=== PATIENT | female | born 1950 | race African-American/Black ===

== ENCOUNTER 2018-09-11 06:21 | Day surgery (SDC) | payer MEDICARE, OTHER ==
[~2018-09-11] VITALS: Ht 170.2 cm; Wt 93.9 kg
[2018-09-11] MEDS ORDERED: PRAV40TA58 PO (08:30)
[2018-09-11] MEDS ORDERED: ASPI-1159 PO (08:30)
[2018-09-11] MEDS ORDERED: LOSA1TAB37 PO (08:30)
[2018-09-11] MEDS ORDERED: POTA10TA19 PO (08:30)
[2018-09-11] MEDS ORDERED: NITR0.4T SL (08:30)
[2018-09-11] MEDS ORDERED: LIDOCAINE HCL 1% 20ML VIAL (Pyxis) INJ ONE (08:31)
[2018-09-11] MEDS ORDERED: MIDAZOLAM HCL 5 MG/5 ML VIAL ONE (08:32)
[2018-09-11] MEDS ORDERED: FENTANYL CITRATE/PF 50MCG/ML 2ML VIAL ONE (08:32)
[2018-09-11] MEDS ORDERED: IOHEXOL-300 100 ML BOTTLE ONE (08:35)
[2018-09-11] MEDS ORDERED: ATROPINE SULFATE 1MG/10ML SYR IV PRN (09:30)
[2018-09-11] MEDS ORDERED: ONDANSETRON HCL 4MG/2ML INJ IV PRN (09:30)
[2018-09-11] MEDS ORDERED: ACETAMINOPHEN 325MG TABLET PO PRN (09:30)
[2018-09-11] MEDS ORDERED: HEPARIN SODIUM 1,000 UNIT/1ML VIAL IV ONE (14:51)
[2018-09-11] MEDS ORDERED: NITROGLYCERIN 50MCG/ML 10ML VIAL (CATH LAB) IV ONE (15:10)
[2018-09-11] MEDS ORDERED: NICARDIPINE 100MCG/ML 10ML VIAL (CATH LAB) IV ONE (15:10)
== END 2018-09-11 13:12 | disposition home or self-care (01) ==
LOC: CCL 06:21
PROVIDERS: ATTEND Specialist
DX: I25.10 Atherosclerotic heart disease of native coronary artery without angina pectoris (principal); R73.9 Hyperglycemia, unspecified; I47.1 Supraventricular tachycardia; I25.2 Old myocardial infarction; Z95.5 Presence of coronary angioplasty implant and graft; Z98.890 Other specified postprocedural states
CPT/HCPCS: 93458; C1769; J1644; J2250; J3010; J3490; Q9967; 99152; C1887; C1893; G0500

== ENCOUNTER 2019-05-20 05:38 | Day surgery (SDC) | payer MEDICARE, OTHER ==
[~2019-05-20] VITALS: Ht 170.2 cm; Wt 95.3 kg
[~2019-05-20 05:38] MED LIST: ASPI-1393 PO; LACTATED RINGERS 1,000 ML IV SCH; LOSA1TAB37 PO; NITR0.4T SL; POTA10TA19 PO; PRAV40TA58 PO
[2019-05-20 06:20] LABS: EOSINOPHILS % 2.7 % (0.0-5.0); HEMATOCRIT. 41.2 % (36.0-48.0); HEMOGLOBIN. 13.9 g/dL (12.0-16.0); LYMPHOCYTES % 16.7 % (20.0-50.0); MEAN CORPUSCULAR HEMOGLOBIN 29.3 pg (28.0-32.0); MEAN CORPUSCULAR VOLUME 87.1 fL (81.0-99.0); MEAN PLATELET VOLUME 8.7 fl (7.4-10.4); MONOCYTES % 5.4 % (2.0-8.0); NEUTROPHILS % 74.2 % (40.0-76.0); PLATELET 283 x1000/uL (130-400); RED BLOOD CELL COUNT 4.73 mill/uL (4.2-5.4); RED CELL DISTRIBUTION WIDTH 12.6 % (11.6-14.6)
[2019-05-20 06:27] LABS: CHLORIDE 107 mEq/L (98-107)
[2019-05-20 06:45] LABS: CLARITY URINE CLEAR (CLEAR); COLOR URINE YELLOW (YELLOW); KETONES URINE NEGATIVE (NEGATIVE); LEUKOCYTE ESTERASE URINE 1+ (NEGATIVE); NITRITE URINE NEGATIVE (NEGATIVE); OCCULT BLOOD URINE NEGATIVE (NEGATIVE); PROTEIN URINE NEGATIVE (NEGATIVE); UROBILINOGEN URINE 0.2 E.U./dL (0.2-1.0)
[2019-05-20 06:51] LABS: UCG SCREEN NEGATIVE
[2019-05-20] MEDS ORDERED: FERRIC SUBSULFATE SOLN 8GM TOP ONE (07:30)
[2019-05-20] MEDS ORDERED: POTASSIUM IODIDE/IODINE 20ML TOP ONE (07:30)
[2019-05-20] MEDS ORDERED: PROPOFOL 200MG/20ML VIAL IV ONE ×3 (07:32→08:17)
[2019-05-20] MEDS ORDERED: MIDAZOLAM HCL 2 MG/2 ML VIAL ONE (07:32)
[2019-05-20] MEDS ORDERED: FENTANYL CITRATE/PF 50MCG/ML 2ML VIAL ONE (07:32)
[2019-05-20] MEDS ORDERED: GLYCOPYRROLATE 0.2 MG/ML 2ML VIAL ONE (07:55)
[2019-05-20] MEDS ORDERED: ACETAMINOPHEN 325MG TABLET GT PRN (08:00)
[2019-05-20] MEDS ORDERED: VASOPRESSIN 20 UNIT/ML 1ML ONE (08:09)
[2019-05-20] MEDS ORDERED: ONDANSETRON HCL 4MG/2ML INJ IV PRN (09:15)
[2019-05-20] MEDS ORDERED: FENTANYL CITRATE/PF 50MCG/ML 2ML VIAL IV PRN (09:15)
[2019-05-20] MEDS ORDERED: CHOL200010 PO (09:44)
== END 2019-05-20 10:53 | disposition home or self-care (01) ==
LOC: OR 05:38
PROVIDERS: ATTEND Obstetrics & Gynecology Obstetrics
DX: N87.9 Dysplasia of cervix uteri, unspecified (principal); R89.6 Abnormal cytological findings in specimens from other organs, systems and tissues; I25.2 Old myocardial infarction; I10 Essential (primary) hypertension; Z82.49 Family history of ischemic heart disease and other diseases of the circulatory system; Z95.5 Presence of coronary angioplasty implant and graft; Z88.5 Allergy status to narcotic agent
CPT/HCPCS: 36415; 57522; 80053; 81003; 81025; 85025; 88305; 88307; 93005; J2250; J2704; J3010; J3490